=== PATIENT | female | born 1975 | race African-American/Black ===

== ENCOUNTER 2017-06-12 18:27 | Emergency (ER) | payer OTHER ==
--- NOTE | 2017-06-12 18:31 | PDOC ---
Rapid Medical Evaluation Chief Complaint: Blood Pressure Problem Time Seen by Provider: 06/12/17 18:30 Medical Evaluation: Allergies Allergy/AdvReac Type Severity Reaction Status Date / Time No Known Allergies Allergy Verified 06/12/17 18:29 06/12/17 18:30 I have performed a brief in-person evaluation of this patient. The patient presents with a chief complaint of: LYNN x 1 week w/ elevated BP at work today. No h/o HTN. No dizziness, visual changes, n/v, focal weakness, cp or sob Pertinent physical exam findings:BP 160/100 at triage and tachy to 110 I have ordered the following: cbc/chem/ua/serum preg The patient will proceed to the ED for further evaluation. 06/12/17 18:32
[2017-06-12 18:32] VITALS: TEMP 97.8; BMI 23.4
[2017-06-12 18:55] LABS: EOSINOPHIL 1.3 % (0-4.5); MCH 30.1 pg (25.7-33.7); MCHC 33.2 g/dl (32.0-36.0); MEAN CELL VOLUME 90.6 fl (80-96); MEAN PLT VOLUME 7.1 fl (7.5-11.1); NEUTROPHILS 51.1 % (42.8-82.8); PLATELET COUNT 535 K/MM3 (134-434); RDW 13.6 % (11.6-15.6); WHITE BLOOD COUNT 11.8 K/mm3 (4.0-10.0)
[2017-06-12 18:57] LABS: URINE APPEARANCE CLEAR; URINE BILIRUBIN NEGATIVE (NEGATIVE); URINE BLOOD NEGATIVE (NEGATIVE); URINE COLOR LTYELLOW; URINE GLUCOSE (UA) NEGATIVE (NEGATIVE); URINE KETONE NEGATIVE (NEGATIVE); URINE NITRITE NEGATIVE (NEGATIVE); URINE PROTEIN NEGATIVE (NEGATIVE); URINE UROBILINOGEN NEGATIVE mg/dL (0.2-1.0)
--- NOTE | 2017-06-12 19:08 | PDOC ---
History of Present Illness - History of Present Illness Initial Comments: 06/12/17 19:23 The patient is a 41 year old female, with a significant past medical history of migraines, who presents to the emergency department with headache and elevated BP earlier today. Patient states she was at work when she started to experience an intense migraine localized around her forehead area. She took her blood pressure and noted that it was 1665/114. She is not currently on any blood pressure meds. She states she did not take any medication for the headache. She also mentioned that she experienced some black specs in her visual field. She denies recent fevers, chills,or dizziness. She denies recent nausea, vomit, cough, diarrhea or constipation. She denies recent dysuria, frequency, urgency or hematuria. She denies recent chest pain or shortness of breath. Allergies: NKA Past surgical history: Gallbladder removal (2007) (2004) Social history: 1/2 a pack smoker (20+ years). Denies EtOH use and recreational drug use. Family History: HTN (maternal & paternal) <Isabel Gan - Last Filed: 06/12/17 19:23> <Sarai Hitchcock - Last Filed: 06/12/17 20:28> - General Chief Complaint: Blood Pressure Problem Stated Complaint: BLOOD PRESSURE PROBLEM Time Seen by Provider: 06/12/17 18:30 Past History <Isabel Gan - Last Filed: 06/12/17 19:23> - Past Medical History COPD: No - Surgical History Cholecystectomy: Yes - Suicide/Smoking/Psychosocial Hx Smoking History: Never smoked Have you smoked in the past 12 months: No Information on smoking cessation initiated: No Hx Alcohol Use: No Drug/Substance Use Hx: No Substance Use Type: None <Sarai Hitchcock - Last Filed: 06/12/17 20:28> - Past Medical History Allergies/Adverse Reactions: Allergies Allergy/AdvReac Type Severity Reaction Status Date / Time No Known Allergies Allergy Verified 06/12/17 18:29 Home Medications: Ambulatory Orders NK [No Known Home Medication] 06/12/17 Review of Systems - Review of Systems Comments:: 06/12/17 19:30 CONSTITUTIONAL: Absent: fever, no chills, no fatigue EYES: Present: clifton specs in visual field ENT: Absent: ear pain, no sore throat CARDIOVASCULAR: Absent: chest pain, no palpitations RESPIRATORY: Absent: cough, no SOB GI: Absent: abdominal pain, no nausea, no vomiting, no constipation, no diarrhea GENITOURINARY: Absent: dysuria, no frequency, no hematuria MUSCULOSKELETAL: Absent: back pain, no arthralgia, no myalgia SKIN: Absent: rash NEURO: Present: headache <ElviaIsabel - Last Filed: 06/12/17 19:23> *Physical Exam - Vital Signs Last Vital Signs Temp Pulse Resp BP Pulse Ox 97.8 F 110 H 18 160/100 100 06/12/17 18:29 06/12/17 18:29 06/12/17 18:29 06/12/17 18:29 06/12/17 18:29 - Physical Exam Comments: 06/12/17 19:31 GENERAL: Well-appearing, well-nourished. No apparent distress. HEENT: Normocephalic, atraumatic. PERRL, EOM intact. CARDIOVASCULAR: Normal S1, S2. Regular rate and rhythm. PULMONARY: Clear to auscultation bilaterally. ABDOMEN: Soft, non-distended, non-tender. EXTREMITIES: Normal ROM in all four extremities. No gross deformities. SKIN: Warm, dry. No rash NEUROLOGICAL: No focal neurological deficits. <ElviaIsabel - Last Filed: 06/12/17 19:23> - Vital Signs Last Vital Signs Temp Pulse Resp BP Pulse Ox 97.8 F 110 H 18 160/100 100 06/12/17 18:29 06/12/17 18:29 06/12/17 18:29 06/12/17 18:29 06/12/17 18:29 <Sarai Hitchcock - Last Filed: 06/12/17 20:28> ED Treatment Course - LABORATORY CBC & Chemistry Diagram: 06/12/17 18:50 06/12/17 18:50 - ADDITIONAL ORDERS Additional order review: Laboratory Results 06/12/17 06/12/17 18:50 18:50 Serum , Qual Negative Urine Color Ltyellow Urine Appearance Clear Urine pH 6.0 Ur Specific [place] 1.008 Urine Protein Negative Urine Glucose (UA) Negative Urine Ketones Negative Urine Blood Negative Urine Nitrite Negative Urine Bilirubin Negative Urine Urobilinogen Negative 06/12/17 18:50 RBC 4.54 MCV 90.6 MCHC 33.2 RDW 13.6 MPV 7.1 L Neutrophils % 51.1 Lymphocytes % 40.9 H Monocytes % 5.7 Eosinophils % 1.3 Basophils % 1.0 - Medications Given in the ED: ED Medications Discontinued Medications Generic Name Dose Route Start Last Admin Trade Name Christian PRN Reason Stop Dose Admin Acetaminophen 975 mg 06/12/17 19:13 06/12/17 19:20 Tylenol - PO 06/12/17 19:14 975 mg ONCE STA Administration <Isabel Gan - Last Filed: 06/12/17 19:23> - LABORATORY CBC & Chemistry Diagram: 06/12/17 18:50 06/12/17 18:50 - ADDITIONAL ORDERS Additional order review: Laboratory Results 06/12/17 18:50 Urine Color Ltyellow Urine Appearance Clear Urine pH 6.0 Ur Specific [place] 1.008 Urine Protein Negative Urine Glucose (UA) Negative Urine Ketones Negative Urine Blood Negative Urine Nitrite Negative Urine Bilirubin Negative Urine Urobilinogen Negative 06/12/17 18:50 RBC 4.54 MCV 90.6 MCHC 33.2 RDW 13.6 MPV 7.1 L Neutrophils % 51.1 Lymphocytes % 40.9 H Monocytes % 5.7 Eosinophils % 1.3 Basophils % 1.0 <Sarai Hitchcock - Last Filed: 06/12/17 20:28> Medical Decision Making - Medical Decision Making 06/12/17 20:24 pt dev a frontal headache and had BP taken at work,since it was elevated she was sent to ER. Pt didnt take any OTC meds for her headache prior to arrival Blood pressure is about 132/90 after tylenol. Headache, resolved. Patient to follow-up with her primary doctor Labs reviewed are unremarkable. Patient has no fever, no URI, no nausea, no vomiting, no neck pain and no photophobia Labs reviewed and are essentially unremarkable Headache ,elevated BP <Sarai Hitchcock - Last Filed: 06/12/17 20:28> *DC/Admit/Observation/Transfer - Attestations Scribe Attestion: 06/12/17 19:31 Documentation prepared by Isabel Gan, acting as medical certification specialist for Sarai Hitchcock MD. <Isabel Gan - Last Filed: 06/12/17 19:23> <NaldoSarai Taveras - Last Filed: 06/12/17 20:28> Diagnosis at time of Disposition: High blood pressure Qualifiers: Hypertension type: unspecified Qualified Code(s): I10 - Essential (primary) hypertension Headache Qualifiers: Headache type: tension-type Headache chronicity pattern: acute headache Intractability: not intractable Qualified Code(s): G44.209 - Tension-type headache, unspecified, not intractable - Discharge Dispostion Disposition: HOME Condition at time of disposition: Stable - Patient Instructions Printed Discharge Instructions: DI for High Blood Pressure, DI for Hormonal and Tension Headaches Additional Instructions: please follow up with your regular physician
[2017-06-12] MEDS ORDERED: ACETAMINOPHEN 500 MG TABLET (FP) PO STA (19:13)
[2017-06-12] MEDS ORDERED: ACETAMINOPHEN 325 MG TABLET (FP) ONE (19:22)
[2017-06-12 19:24] LABS: ALBUMIN 4.1 g/dl (3.4-5.0); ANION GAP 8 (8-16); CALCIUM 9.2 mg/dL (8.5-10.1); CO2 28 mmol/L (21-32); CREATININE 0.9 mg/dL (0.55-1.02); GLUCOSE,RANDOM 85 mg/dL (74-106); SGOT/AST 20 U/L (15-37); SGPT/ALT 26 U/L (12-78)
[2017-06-12 19:26] LABS: ALK PHOS 120 U/L (45-117); BILIRUBIN,TOTAL 0.6 mg/dL (0.2-1.0); TOT PROT 8.8 g/dl (6.4-8.2)
[2017-06-12 20:24] VITALS: BP 132/90; PULSE 80
[2017-06-12 22:33] LABS: URINE LEUK ESTERASE Negative (NEGATIVE)
== END 2017-06-12 20:36 | disposition home or self-care (01) ==
LOC: JER 18:27
DX: I10 Essential (primary) hypertension (principal); G44.209 Tension-type headache, unspecified, not intractable; F17.210 Nicotine dependence, cigarettes, uncomplicated
CPT/HCPCS: 36415; 80053; 81003; 84703; 85025; 99282-25